=== PATIENT | female | born 1985 | race Caucasian/White ===

== ENCOUNTER 2020-02-03 11:53 | Emergency (ER) | payer SELFPAY ==
[2020-02-03 12:17] VITALS: BP 125/66; PULSE 70; TEMP 98; BMI 23.8
[2020-02-03 13:51] LABS: ALBUMIN 4.4 g/dl (3.4-5.0); BILIRUBIN,TOTAL 0.4 mg/dl (0.2-1); CALCIUM 10.6 mg/dl (8.5-10); CREATININE 0.6 mg/dl (0.55-1.3); POTASSIUM 4.1 mmol/L (3.5-5.1)
[2020-02-03 13:59] LABS: EPITHELIAL CELLS FEW /hpf
[2020-02-03 15:15] LABS: HEMATOCRIT 40.3 % (32.4-45.2); HEMOGLOBIN 13.5 GM/dL (10.7-15.3); MCH 31.7 pg (25.7-33.7); MCHC 33.6 g/dl (32.0-36.0); MEAN CELL VOLUME 94.4 fl (80-96); MEAN PLT VOLUME 9.8 fl (7.5-11.1); PLATELET COUNT 187 K/MM3 (134-434); RBC 4.27 M/mm3 (3.60-5.2); WHITE BLOOD COUNT 9.3 K/mm3 (4.0-10.0)
== END 2020-02-03 16:42 | disposition home or self-care (01) ==
LOC: FER 11:53
DX: O20.0 Threatened abortion (principal)
CPT/HCPCS: 36415; 76801-TC; 76817-TC; 80053; 81003; 81015; 84702; 84703; 85027; 86850; 86900; 86901; 99284-25